=== PATIENT | male | born 2000 | race Caucasian/White ===

== ENCOUNTER 2022-12-22 23:50 | Emergency (ER) | payer SELFPAY ==
[2022-12-22 23:51] VITALS: BP 141/83; PULSE 84; RESP 16; TEMP 36.4; O2SAT 98; BMI 18.8
[2022-12-23 00:02] VITALS: BP 102/67; PULSE 78; RESP 18; O2SAT 97
--- NOTE | 2022-12-23 00:15 | CTR_ITS ---
PROCEDURE INFORMATION: Exam: CT Abdomen And Pelvis With Contrast Exam date and time: 12/23/2022 12:26 AM Age: 22 years old Clinical indication: Abdominal pain; Generalized; Patient HX: C/O diffuse abd pain. ; Additional info: Central abd pain, R/O infection, renal calculi, bowel obstru TECHNIQUE: Imaging protocol: Computed tomography of the abdomen and pelvis with contrast. Radiation optimization: All CT scans at this facility use at least one of these dose optimization techniques: automated exposure control; mA and/or kV adjustment per patient size (includes targeted exams where dose is matched to clinical indication); or iterative reconstruction. Contrast material: OMNI 350; Contrast volume: 75 ml; Contrast route: INTRAVENOUS (IV); REPORTING DATA: Count of CT and Cardiac NM exams in prior 12 months: This patient has received 0 known CTs and 0 known cardiac nuclear medicine studies in the 12 months prior to the current study. COMPARISON: No relevant prior studies available. RADIATION DOSE METRICS: Total DLP (mGy-cm): 332.24 FINDINGS: Liver: Normal. No mass. Gallbladder and bile ducts: Normal. No calcified stones. No ductal dilation. Pancreas: Normal. No ductal dilation. Spleen: Normal. No splenomegaly. Adrenal glands: Normal. No mass. Kidneys and ureters: The kidney is in the early excretory phase with a striated appearance. This is not the typical appearance of pyelonephritis and there is no perirenal fat stranding. No hydronephrosis. No renal calculus. Stomach and bowel: No bowel obstruction or inflammatory process associated with the bowel. Appendix: The appendix images normally. Intraperitoneal space: No free air or significant free fluid in the abdomen or pelvis. Vasculature: Unremarkable. No abdominal aortic aneurysm. Lymph nodes: Unremarkable. No enlarged lymph nodes. Urinary bladder: Unremarkable as visualized. Reproductive: Unremarkable as visualized. Bones/joints: Unremarkable. No acute fracture. Soft tissues: Unremarkable. CT/CT abdomen pelvis w con* [id number] IMPRESSION: 1. No bowel obstruction or inflammatory process associated with the bowel. 2. No free air or significant free fluid in the abdomen or pelvis. 3. The appendix images normally. 4. The kidney is in the early excretory phase with a striated appearance. This is not the typical appearance of pyelonephritis and there is no perirenal fat stranding. No hydronephrosis. No renal calculus.
--- NOTE | 2022-12-23 00:16 | W.ED.BACK ---
Documented by User: SABRINA Holland 12/23/22 00:57 HPI - Back Pain/Injury General: Chief Complaint: Back Pain/Injury Stated Complaint: Back Pain Time Seen by Provider: 12/23/22 00:04 History of Present Illness: 22-year-old male patient comes in today with nausea and vomiting starting this morning and persisting throughout the day with mid back pain. Patient appears unwell. Patient appears in moderate pain. Patient is disabled due to autism spectrum disorder. No routine medications are noted. Patient does not drink alcohol occasionally. Patient is a daily marijuana smoker. Associated symptoms: Reports nausea and vomiting Review of Systems General: Reports: 10 or more systems reviewed and unremarkable except in HPI and below Resp: Denies: dyspnea GI: Reports: nausea and vomiting; Denies: diarrhea or constipation Musc: Reports: back pain Skin/Breast: Denies: rash Physical Exam Const: COMMON NORMALS: alert HENMT: COMMON NORMALS: normocephalic HEAD & SCALP: normocephalic MOUTH: Normal oral and palatal mucosa present Neck/C-Spine: COMMON NORMALS: full ROM Resp: COMMON NORMALS: normal respiratory effort and clear to auscultation bilaterally AUSCULTATION: clear to auscultation bilaterally Cardio: COMMON NORMALS: regular rate and regular rhythm RATE: regular rate RHYTHM: regular rhythm GI: COMMON NORMALS: Soft to palpation AUSCULTATION: Yes normoactive bowel sounds PALPATION: Yes Soft to palpation and Yes Tenderness to palpation present (GI) (Epigastric) : COMMON NORMALS: Yes no CVA tenderness BLADDER/KIDNEY EXAM: Yes no CVA tenderness Back/Pelvis: COMMON NORMALS: no CVA tenderness and thoracic and lumbar spine normal to inspection Extremity: COMMON NORMALS: normal to inspection and no pedal edema Neuro: SENSORIUM/ORIENTATION: Yes alert Skin: COMMON NORMALS: turgor normal GENERAL SKIN EXAM: turgor normal Course Vital Signs: Vital signs: Vital Signs Temperature 97.6 F 12/22/22 23:51 Pulse Rate 78 12/23/22 00:02 Respiratory Rate 16 12/23/22 00:44 Blood Pressure 102/67 12/23/22 00:02 Pulse Oximetry 99 12/23/22 00:44 Oxygen Delivery Me thod Room Air 12/23/22 00:02 MDM - Back Pain/Injury Medical Decision Making 22-year-old male patient brought in today by mother for concerns of persistent vomiting and mid back pain. On exam abdomen soft with some mild epigastric tenderness. Palpation of the thoracic and lumbar spine elicited no pain. Palpation of the paraspinous muscles elicit no pain. Patient does report pain with movement. Lungs are clear to auscultation. Bowel sounds are normal. Vital signs are normal except for some elevation and blood pressure. Differential diagnosis includes but not limited to hyperemesis cannabinoid syndrome, pancreatitis, gallbladder disease, renal calculi, bowel obstruction, appendicitis, dehydration. Labs 12/23/22 00:20 12/23/22 00:20 Radiology Impressions Abdomen/Pelvis CT 12/23/22:15 IMPRESSION: 1. No bowel obstruction or inflammatory process associated with the bowel. 2. No free air or significant free fluid in the abdomen or pelvis. 3. The appendix images normally. 4. The kidney is in the early excretory phase with a striated appearance. This is not the typical appearance of pyelonephritis and there is no perirenal fat stranding. No hydronephrosis. No renal calculus. Laboratory Results WBC 24.74 10^3/uL (3.29-11.43) H 12/23/22 00:20 RBC 4.99 10^6/uL (3.85-5.65) 12/23/22 00:20 Hgb 15.50 g/dL (11.27-16.99) 12/23/22 00:20 Hct 44.1 % (37-53) 12/23/22 00:20 MCV 88.4 fl (82-101) 12/23/22 00:20 MCH 31.1 pg (27-33) 12/23/22 00:20 MCHC 35.1 g/dL (30-55) 12/23/22 00:20 RDW 12.4 % (12.1-15.1) 12/23/22 00:20 Plt Count 293 10^3/cmm (157-399) 12/23/22 00:20 MPV 9.4 fL (7.4-10.4) 12/23/22 00:20 Neut % (Auto) 90.7 % 12/23/22 00:20 Lymph % (Auto) 2.8 % 12/23/22 00:20 Cataño % (Auto) 5.8 % 12/23/22 00:20 Eos % (Auto) 0.0 % 12/23/22 00:20 Baso % (Auto) 0.1 % 12/23/22 00:20 Neut # (Auto) 22.42 10^3/uL (1.8-7.7) H 12/23/22 00:20 Lymph # (Auto) 0.7 10^3/uL (0.8-4.8) L 12/23/22 00:20 Cataño # (Auto) 1.4 10^3/uL (0.2-0.9) H 12/23/22 00:20 Eos # (Auto) 0.0 10^3/uL (0.0-0.8) 12/23/22 00:20 Baso # (Auto) 0.0 10^3/uL (0.0-0.1) 12/23/22 00:20 Nucleated RBC % (auto) 0 % 12/23/22 00:20 Nucleated RBCs # 0.0 /100WBC 12/23/22 00:20 Sodium 137 mmol/L (136-145) 12/23/22 00:20 Potassium 4.1 mmol/L (3.5-5.1) 12/23/22 00:20 Chloride 96 mmol/L (98-107) L 12/23/22 00:20 Carbon Dioxide 24 mmol/L (22-29) 12/23/22 00:20 Anion Gap 21.1 (5-19) H 12/23/22 00:20 BUN 26 mg/dL (6-20) H 12/23/22 00:20 Creatinine 1.3 mg/dL (0.7-1.2) H 12/23/22 00:20 GFR Calculation 69.7 mL/min (90-130) L 12/23/22 00:20 Glucose 132 mg/dL (65-115) H 12/23/22 00:20 Calculated Osmolality 291 mOsm/kg (285-295) 12/23/22 00:20 Calcium 10.1 mg/dL (8.5-10.5) 12/23/22 00:20 Total Bilirubin 0.5 mg/dL (0.15-1.2) 12/23/22 00:20 AST 52 U/L (0-40) H 12/23/22 00:20 ALT 39 U/L (0-41) 12/23/22 00:20 Alkaline Phosphatase 67 U/L (40-130) 12/23/22 00:20 Total Protein 9.0 g/dL (6.6-8.7) H 12/23/22 00:20 Albumin 5.7 g/dL (3.5-5.2) H 12/23/22 00:20 Globulin 3.3 g/dL (1.3-4.6) 12/23/22 00:20 Lipase 22 U/L (13-60) 12/23/22 00:20 XR interpretation done by ED provider, pending radiology final review Discharge Plan Discharge Patient Disposition: Home Clinical Impression: Vomiting Condition: Stable Prescriptions: New ondansetron 4 mg tablet,disintegrating 4 mg PO Q6H PRN (Reason: nausea and vomiting) Qty: 14 0RF Discharge Orders: Discharge ED (Routine); Ordered 12/23/22 Ordered By: Bisi Palmer Discharge Diet: Advance as tolerated Discharge Activity: Resume usual activity Patient Instructions: Acute Nausea and Vomiting (ED) Coding Level of Care Code ED Sharepoint Manager for Chg Fwd Documented by User: Bisi Palmer MD 12/23/22 01:53 HPI - Back Pain/Injury General: Chief Complaint: Back Pain/Injury Stated Complaint: Back Pain Time Seen by Provider: 12/23/22 00:04 Course Vital Signs: Vital signs: Vital Signs Temperature 97.6 F 12/22/22 23:51 Pulse Rate 78 12/23/22 00:02 Respiratory Rate 16 12/23/22 00:44 Blood Pressure 102/67 12/23/22 00:02 Pulse Oximetry 99 12/23/22 00:44 Oxygen Delivery Me thod Room Air 12/23/22 00:02 MDM - Back Pain/Injury Medical Decision Making 22-year-old male patient brought in today by mother for concerns of persistent vomiting and mid back pain. On exam abdomen soft with some mild epigastric tenderness. Palpation of the thoracic and lumbar spine elicited no pain. Palpation of the paraspinous muscles elicit no pain. Patient does report pain with movement. Lungs are clear to auscultation. Bowel sounds are normal. Vital signs are normal except for some elevation and blood pressure. Differential diagnosis includes but not limited to hyperemesis cannabinoid syndrome, pancreatitis, gallbladder disease, renal calculi, bowel obstruction, appendicitis, dehydration. Patient presents here with vomiting likely cannabis induced vomiting does have elevated white count is likely reactive in nature he feels improved here after IV fluids and nausea medicine CT scan showed no acute findings he is stable for discharge we will prescribe him Zofran instructed him to quit smoking marijuana he is to follow-up with his PCP and return if worsening Medical Records I reviewed the patient's medical records. Labs I reviewed the patient's lab results. 12/23/22 00:20 12/23/22 00:20 Radiology Impressions Abdomen/Pelvis CT 12/23/22 00:15 IMPRESSION: 1. No bowel obstruction or inflammatory process associated with the bowel. 2. No free air or significant free fluid in the abdomen or pelvis. 3. The appendix images normally. 4. The kidney is in the early excretory phase with a striated appearance. This is not the typical appearance of pyelonephritis and there is no perirenal fat stranding. No hydronephrosis. No renal calculus. Laboratory Results WBC 24.74 10^3/uL (3.29-11.43) H 12/23/22 00:20 RBC 4.99 10^6/uL (3.85-5.65) 12/23/22 00:20 Hgb 15.50 g/dL (11.27-16.99) 12/23/22 00:20 Hct 44.1 % (37-53) 12/23/22 00:20 MCV 88.4 fl (82-101) 12/23/22 00:20 MCH 31.1 pg (27-33) 12/23/22 00:20 MCHC 35.1 g/dL (30-55) 12/23/22 00:20 RDW 12.4 % (12.1-15.1) 12/23/22 00:20 Plt Count 293 10^3/cmm (157-399) 12/23/22 00:20 MPV 9.4 fL (7.4-10.4) 12/23/22 00:20 Neut % (Auto) 90.7 % 12/23/22 00:20 Lymph % (Auto) 2.8 % 12/23/22 00:20 Cataño % (Auto) 5.8 % 12/23/22 00:20 Eos % (Auto) 0.0 % 12/23/22 00:20 Baso % (Auto) 0.1 % 12/23/22 00:20 Neut # (Auto) 22.42 10^3/uL (1.8-7.7) H 12/23/22 00:20 Lymph # (Auto) 0.7 10^3/uL (0.8-4.8) L 12/23/22 00:20 Cataño # (Auto) 1.4 10^3/uL (0.2-0.9) H 12/23/22 00:20 Eos # (Auto) 0.0 10^3/uL (0.0-0.8) 12/23/22 00:20 Baso # (Auto) 0.0 10^3/uL (0.0-0.1) 12/23/22 00:20 Nucleated RBC % (auto) 0 % 12/23/22 00:20 Nucleated RBCs # 0.0 /100WBC 12/23/22 00:20 Sodium 137 mmol/L (136-145) 12/23/22 00:20 Potassium 4.1 mmol/L (3.5-5.1) 12/23/22 00:20 Chloride 96 mmol/L (98-107) L 12/23/22 00:20 Carbon Dioxide 24 mmol/L (22-29) 12/23/22 00:20 Anion Gap 21.1 (5-19) H 12/23/22 00:20 BUN 26 mg/dL (6-20) H 12/23/22 00:20 Creatinine 1.3 mg/dL (0.7-1.2) H 12/23/22 00:20 GFR Calculation 69.7 mL/min (90-130) L 12/23/22 00:20 Glucose 132 mg/dL (65-115) H 12/23/22 00:20 Calculated Osmolality 291 mOsm/kg (285-295) 12/23/22 00:20 Calcium 10.1 mg/dL (8.5-10.5) 12/23/22 00:20 Total Bilirubin 0.5 mg/dL (0.15-1.2) 12/23/22 00:20 AST 52 U/L (0-40) H 12/23/22 00:20 ALT 39 U/L (0-41) 12/23/22 00:20 Alkaline Phosphatase 67 U/L (40-130) 12/23/22 00:20 Total Protein 9.0 g/dL (6.6-8.7) H 12/23/22 00:20 Albumin 5.7 g/dL (3.5-5.2) H 12/23/22 00:20 Globulin 3.3 g/dL (1.3-4.6) 12/23/22 00:20 Lipase 22 U/L (13-60) 12/23/22 00:20 Discharge Plan Discharge Patient Disposition: Home Clinical Impression: Vomiting Condition: Stable Prescriptions: New ondansetron 4 mg tablet,disintegrating 4 mg PO Q6H PRN (Reason: nausea and vomiting) Qty: 14 0RF Discharge Orders: Discharge ED (Routine); Ordered 12/23/22 Ordered By: Bisi Palmer Discharge Diet: Advance as tolerated Discharge Activity: Resume usual activity Patient Instructions: Acute Nausea and Vomiting (ED) Coding Level of Care Code ED Sharepoint Manager for Gerardo Bray
[2022-12-23 00:26] LABS: Basophils % 0.1 %; Hematocrit 44.1 % (37-53); Lymphocytes # 0.7 10^3/uL (0.8-4.8); Lymphocytes % 2.8 %; Mean Corpuscular HGB Conc 35.1 g/dL (30-55); Mean Corpuscular Hemoglobin 31.1 pg (27-33); Mean Corpuscular Volume 88.4 fl (82-101); Mean Platelet Volume 9.4 fL (7.4-10.4); Monocytes # 1.4 10^3/uL (0.2-0.9); Monocytes % 5.8 %; Neutrophils # 22.42 10^3/uL (1.8-7.7); Neutrophils % 90.7 %; Nucleated Red Blood Cells % 0 %; Platelet Count 293 10^3/cmm (157-399); Red Blood Count 4.99 10^6/uL (3.85-5.65); Red Cell Distribution Width 12.4 % (12.1-15.1); White Blood Count 24.74 10^3/uL (3.29-11.43)
[2022-12-23] MEDS: iohexol 350 mg/mL 500 mL Btl (per mL) IV (00:29)
[2022-12-23 00:43] LABS: Alanine Aminotransferase 39 U/L (0-41); Albumin Level 5.7 g/dL (3.5-5.2); Alkaline Phosphatase 67 U/L (40-130); Anion Gap 21.1 (5-19); Aspartate Amino Transferase 52 U/L (0-40); Blood Urea Nitrogen 26 mg/dL (6-20); Calcium 10.1 mg/dL (8.5-10.5); Carbon Dioxide 24 mmol/L (22-29); Chloride 96 mmol/L (98-107); Globulin 3.3 g/dL (1.3-4.6); Glomerular Filtration Rate 69.7 mL/min (90-130); Glucose 132 mg/dL (65-115); Lipase 22 U/L (13-60); Osmolality Calculated 291 mOsm/kg (285-295); Potassium 4.1 mmol/L (3.5-5.1); Sodium 137 mmol/L (136-145); Total Bilirubin 0.5 mg/dL (0.15-1.2)
[2022-12-23] MEDS: metoclopramide 5 mg/mL SDV 2 mL 10 MG IVP (00:43)
[2022-12-23 00:44] VITALS: RESP 16; O2SAT 99
[2022-12-23] MEDS: fentaNYL 50 mcg/mL INJ 2mL IVP (00:44)
[2022-12-23] MEDS: sodium chloride 0.9% 1,000 ML 999 ML IV (00:45)
[2022-12-23] MEDS: lactated ringers 1,000 ML 999 ML IV (01:01)
[2022-12-23 02:04] VITALS: BP 108/58; PULSE 91; RESP 18; O2SAT 98
[2022-12-23 02:36] VITALS: BP 121/67; PULSE 78; RESP 18; O2SAT 97
== END 2022-12-23 02:38 | disposition home or self-care (01) ==
PROVIDERS: Nurse Practitioner Family; Emergency Provider Emergency Medicine
DX: R11.11 Vomiting without nausea (principal)
CPT/HCPCS: 74177; 80053; 83690; 85025; 96361; 96374; 96375; 99285; J2765; J3010; J7030; J7120; Q9967

== ENCOUNTER 2024-03-23 17:30 | Emergency (ER) | payer SELFPAY ==
[2024-03-23] VITALS (10 sets, daily range): BP systolic 99–135; BP diastolic 68–88; PULSE 81–109; RESP 13–18; TEMP 35.8; O2SAT 92–100; BMI 21.9
[2024-03-23] MEDS: LORazepam 2 mg/mL INJ 1 mL IM (17:42)
[2024-03-23] MEDS: levETIRAcetam 1,000 MG/100 ML PREMIX 400 MG IV (17:44)
[2024-03-23 17:46] LABS: Basophils % 0.3 %; Eosinophils % 0.2 %; Hematocrit 52.3 % (37-53); Lymphocytes # 2.9 10^3/uL (0.8-4.8); Mean Corpuscular HGB Conc 32.3 g/dL (30-55); Mean Corpuscular Volume 92.9 fl (82-101); Mean Platelet Volume 9.7 fL (7.4-10.4); Monocytes # 0.9 10^3/uL (0.2-0.9); Monocytes % 6.1 %; Neutrophils # 10.58 10^3/uL (1.8-7.7); Nucleated Red Blood Cells % 0 %; Platelet Count 373 10^3/cmm (157-399); Red Blood Count 5.63 10^6/uL (3.85-5.65); Red Cell Distribution Width 12.4 % (12.1-15.1); White Blood Count 14.49 10^3/uL (3.29-11.43)
[2024-03-23 17:54] LABS: Glucose Point of Care 102 mg/dL (70-110)
--- NOTE | 2024-03-23 17:55 | ED_ITS ---
HPI - Seizure 2 General: Chief Complaint: Seizure Stated Complaint: seizure @ 4:30 pm today Time Seen by Provider: 03/23/24 17:37 Source: family Mode of arrival: ambulatory History of Present Illness: HPI Narrative: 24-year-old male with history of seizure s had a seizure today at 430 upon his arrival here he still having another seizure patient brought back to room 12 1 had walked in the room he had resolved his seizure at this time. Patient's postictal no history available from him at this time. Parents in the room currently he states he did hit his head earlier today they state he is not on seizure meds currently because he has not had any seizures in years. Related Data Previous Rx's Medication Instructions Recorded ondansetron 4 mg disintegrating 4 mg PO Q6H PRN nausea and 12/23/22 tablet vomiting #14 tabs levetiracetam 100 mg/mL oral 500 mg (5 mL) PO BID 60 days #600 03/23/24 solution (Keppra) mL Allergies Allergy/AdvReac Type Severity Reaction Status Date / Time No Known Allergies Allergy Verified 12/23/22 01:05 Review of Systems 2 General: Reports: ROS unobtainable due to mental status Physical Exam 2 Const: COMMON NORMALS: negative for patient oriented x3 HENMT: COMMON NORMALS: normocephalic and atraumatic HEAD & SCALP: n ormocephalic and atraumatic Eye: COMMON NORMALS: Equal, round and reactive pupils present and EOMs intact bilaterally PUPIL: Yes Equal, round and reactive pupils present Neck/C-Spine: COMMON NORMALS: full ROM and supple Chest: COMMONS NORMALS: normal inspection of the chest Resp: COMMON NORMALS: normal respiratory effort, No retractions, No use of accessory muscles and clear to auscultation bilaterally AUSCULTATION: clear to auscultation bilaterally Cardio: COMMON NORMALS: regular rate, regular rhythm and No murmurs present (Cardio) RATE: regular rate RHYTHM: regular rhythm GI: COMMON NORMALS: Normal to inspection, nondistended, normoactive bowel sounds present, Soft to palpation, non-tender and no masses PALPATION: Yes Soft to palpation Extremity: COMMON NORMALS: normal to inspection and full ROM Neuro: COMMON NORMALS: negative for patient oriented x3 Psych: COMMON NORMALS: negative for mental status grossly normal Skin: COMMON NORMALS: no rashes or lesions noted and no wounds GENERAL SKIN EXAM: no rashes or lesions noted Course 2 Vital Signs: Vital signs: Vital Signs Temperature 96.5 F L 03/23/24 17:47 Pulse Rate 82 03/23/24 20:41 Respiratory Rate 18 03/23/24 20:41 Blood Pressure 120/88 03/23/24 20:41 Pulse Oximetry 94 03/23/24 20:41 Oxygen Delivery Me thod Room Air 03/23/24 17:47 MDM - Seizure MDM Narrative Medical decision making narrative: Patient presents after a seizure he is at his baseline currently no signs of meningitis head CT is normal we will start him on Keppra we will get him follow- up with neurology he is return if worsening he understands agrees to plan. Lab Data 03/23/24 17:41 03/23/24 17:41 Labs: Radiology Impressions Head CT 03/23/24 18:28 IMPRESSION: No acute intracranial abnormalities. Laboratory Results WBC 14.49 10^3/uL (3.29-11.43) H 03/23/24 17:41 RBC 5.63 10^6/uL (3.85-5.65) 03/23/24 17:41 Hgb 16.90 g/dL (11.27-16.99) 03/23/24 17:41 Hct 52.3 % (37-53) 03/23/24 17:41 MCV 92.9 fl (82-101) 03/23/24 17:41 MCH 30.0 pg (27-33) 03/23/24 17:41 MCHC 32.3 g/dL (30-55) 03/23/24 17:41 RDW 12.4 % (12.1-15.1) 03/23/24 17:41 Plt Count 373 10^3/cmm (157-399) 03/23/24 17:41 MPV 9.7 fL (7.4-10.4) 03/23/24 17:41 Neut % (Auto) 73.0 % 03/23/24 17:41 Lymph % (Auto) 20.0 % 03/23/24 17:41 Robertson % (Auto) 6.1 % 03/23/24 17:41 Eos % (Auto) 0.2 % 03/23/24 17:41 Baso % (Auto) 0.3 % 03/23/24 17:41 Neut # (Auto) 10.58 10^3/uL (1.8-7.7) H 03/23/24 17:41 Lymph # (Auto) 2.9 10^3/uL (0.8-4.8) 03/23/24 17:41 Robertson # (Auto) 0.9 10^3/uL (0.2-0.9) 03/23/24 17:41 Eos # (Auto) 0.0 10^3/uL (0.0-0.8) 03/23/24 17:41 Baso # (Auto) 0.0 10^3/uL (0.0-0.1) 03/23/24 17:41 Nucleated RBC % (auto) 0 % 03/23/24 17:41 Nucleated RBCs # 0.0 /100WBC 03/23/24 17:41 Sodium 141 mmol/L (136-145) 03/23/24 17:41 Potassium 4.5 mmol/L (3.5-5.1) 03/23/24 17:41 Chloride 97 mmol/L (98-107) L 03/23/24 17:41 Carbon Dioxide 14 mmol/L (22-29) L 03/23/24 17:41 Anion Gap 34.5 (5-19) H 03/23/24 17:41 BUN 17 mg/dL (6-20) 03/23/24 17:41 Creatinine 0.9 mg/dL (0.7-1.2) 03/23/24 17:41 GFR Calculation 104.6 mL/min (90-130) 03/23/24 17:41 Glucose 117 mg/dL (65-115) H 03/23/24 17:41 POC Glucose 102 mg/dL (70-110) 03/23/24 17:41 Calculated Osmolality 295 mOsm/kg (285-295) 03/23/24 17:41 Calcium 11.0 mg/dL (8.5-10.5) H 03/23/24 17:41 Total Bilirubin 0.3 mg/dL (0.15-1.2) 03/23/24 17:41 AST 44 U/L (0-40) H 03/23/24 17:41 ALT 36 U/L (0-41) 03/23/24 17:41 Alkaline Phosphatase 79 U/L (40-130) 03/23/24 17:41 Total Protein 9.6 g/dL (6.6-8.7) H 03/23/24 17:41 Albumin 5.7 g/dL (3.5-5.2) H 03/23/24 17:41 Globulin 3.9 g/dL (1.3-4.6) 03/23/24 17:41 All radiology interpretation(s) finalized by discharge Discharge Plan Discharge Patient Disposition: Home Clinical Impression: Generalized seizure Condition: Stable Prescriptions: New levetiracetam [Keppra] 100 mg/mL solution 500 mg PO BID 60 Days Qty: 600 0RF No Action ondansetron 4 mg tablet,disintegrating 4 mg PO Q6H PRN (Reason: nausea and vomiting) Qty: 14 0RF Discharge Orders: Discharge ED (Routine); Ordered 03/23/24 Ordered By: Bisi Palmer Referrals: Chris Rivero MD [Physician] - 4-7 days Discharge Diet: Advance as tolerated Discharge Activity: Resume usual activity Patient Instructions: Seizures Coding Level of Care Code ED Process Operator for Gerardo Bray
[2024-03-23 18:05] LABS: Alanine Aminotransferase 36 U/L (0-41); Albumin Level 5.7 g/dL (3.5-5.2); Alkaline Phosphatase 79 U/L (40-130); Anion Gap 34.5 (5-19); Aspartate Amino Transferase 44 U/L (0-40); Blood Urea Nitrogen 17 mg/dL (6-20); Carbon Dioxide 14 mmol/L (22-29); Chloride 97 mmol/L (98-107); Creatinine Clr Calc Pharmacy 117.4716; Globulin 3.9 g/dL (1.3-4.6); Glomerular Filtration Rate 104.6 mL/min (90-130); Glucose 117 mg/dL (65-115); Osmolality Calculated 295 mOsm/kg (285-295); Potassium 4.5 mmol/L (3.5-5.1); Sodium 141 mmol/L (136-145); Total Bilirubin 0.3 mg/dL (0.15-1.2); Total Protein 9.6 g/dL (6.6-8.7)
--- NOTE | 2024-03-23 18:28 | CTR_ITS ---
PROCEDURE INFORMATION: Exam: CT Head Without Contrast Exam date and time: 03/23/2024 6:37 PM Age: 24 years old Clinical indication: Condition or disease; Convulsions or seizures; Patient HX: Mulitple seizures today. History of pediatric seizure disorder. TECHNIQUE: Imaging protocol: Computed tomography of the head without contrast. Radiation optimization: All CT scans at this facility use at least one of these dose optimization techniques: automated exposure control; mA and/or kV adjustment per patient size (includes targeted exams where dose is matched to clinical indication); or iterative reconstruction. COMPARISON: No relevant prior studies available. RADIATION DOSE METRICS: Total DLP (mGy-cm): 1091.79 FINDINGS: Brain: Normal. No hemorrhage. Unremarkable white matter. No mass effect. Cerebral ventricles: No ventriculomegaly. Paranasal sinuses: Mild paranasal mucosal sinus thickening. Mastoid air cells: Visualized mastoid air cells are well aerated. Bones: Unremarkable. No acute fracture. Soft tissues: Unremarkable. CT/CT head wo con* [id number] IMPRESSION: No acute intracranial abnormalities.
--- NOTE | 2024-03-23 20:29 | PC.NURSE ---
Patient ambulated with assistance from bed to room door and back. Dr. Palmer notified.
--- NOTE | 2024-03-24 09:32 | DCPLANNER ---
messaged neuro for er f/u
== END 2024-03-23 20:45 | disposition home or self-care (01) ==
PROVIDERS: Emergency Provider Emergency Medicine
DX: G40.89 Other seizures (principal)
CPT/HCPCS: 36415; 36416; 70450; 80053; 82962; 85025; 96372; 96374; 99285; J1953; J2060

== ENCOUNTER 2024-05-25 17:31 | Emergency (ER) | payer SELFPAY ==
[2024-05-25 17:36] VITALS: BP 115/77; PULSE 79; RESP 16; O2SAT 98; BMI 19.2
[2024-05-25] MEDS: levETIRAcetam 2,000 MG/200 ML PREMIX 400 MG IV (17:45)
[2024-05-25 17:51] LABS: ABG PCO2 42.7 mmHg (35-45); Arterial Blood Gas Hematocrit 49.9 % (42-52); Base Excess ABG -22.5 mmol/L (-2.0-2.0); Blood Gas Allen Test Pos; Blood Gas Operator Identificat WALCI; Blood Gas Sample Site Radial, right; Blood Gas Sample Type Arterial; Carboxyhemoglobin 0.4 %THgb (0.4-20.1); HCO3 ABG 9.5 mmol/L (22-26); Ionized Calcium Level - ABG 1.3 mmol/L (1.1-1.4); Methemoglobin 1.2 % (0.4-1.5); Oxygen Device NC; Oxygen Saturation ABG 98.6; Potassium Level - ABG 3.7 mmol/L (3.5-5.0); Total Hemoglobin 16.3 g/dL (14-18)
[2024-05-25 17:52] LABS: ABG PH Result 6.95 (7.35-7.45)
[2024-05-25 17:57] VITALS: PULSE 64; O2SAT 98
[2024-05-25 18:09] LABS: Basophils # 0.1 10^3/uL (0.0-0.1); Basophils % 0.7 %; Eosinophils # 0.3 10^3/uL (0.0-0.8); Eosinophils % 2.2 %; Hematocrit 47.2 % (37-53); Lymphocytes % 26.5 %; Mean Corpuscular HGB Conc 31.6 g/dL (30-55); Mean Corpuscular Hemoglobin 29.9 pg (27-33); Mean Corpuscular Volume 94.8 fl (82-101); Mean Platelet Volume 9.6 fL (7.4-10.4); Monocytes # 0.8 10^3/uL (0.2-0.9); Neutrophils # 9.71 10^3/uL (1.8-7.7); Neutrophils % 64.5 %; Nucleated Red Blood Cells % 0 %; Platelet Count 363 10^3/cmm (157-399); Red Blood Count 4.98 10^6/uL (3.85-5.65); Red Cell Distribution Width 12.3 % (12.1-15.1); White Blood Count 15.07 10^3/uL (3.29-11.43)
[2024-05-25 18:28] LABS: Alanine Aminotransferase 17 U/L (0-41); Alkaline Phosphatase 74 U/L (40-130); Anion Gap 28.7 (5-19); Aspartate Amino Transferase 24 U/L (0-40); Blood Urea Nitrogen 11 mg/dL (6-20); Calcium 9.1 mg/dL (8.5-10.5); Carbon Dioxide 11 mmol/L (22-29); Chloride 97 mmol/L (98-107); Creatine Phosphokinase 139 U/L (39-308); Creatinine Clr Calc Pharmacy 119.1789; Globulin 2.9 g/dL (1.3-4.6); Glomerular Filtration Rate 104.6 mL/min (90-130); Glucose 214 mg/dL (65-115); Osmolality Calculated 282 mOsm/kg (285-295); Potassium 3.7 mmol/L (3.5-5.1); Sodium 133 mmol/L (136-145); Total Bilirubin 0.2 mg/dL (0.15-1.2); Total Protein 7.9 g/dL (6.6-8.7)
[2024-05-25 18:32] LABS: Alcohol Level < 10 mg/dL (0-10)
[2024-05-25 18:34] LABS: Lactic Sepsis W/Reflex 13.2 mmol/L (0.5-2.2)
[2024-05-25] MEDS: sodium chloride 0.9% 1,000 ML 999 ML IV (18:46)
--- NOTE | 2024-05-25 18:50 | W.ED.SEIZURE ---
HPI - Seizure General: Chief Complaint: Seizure Stated Complaint: seizures Time Seen by Provider: 05/25/24 17:34 History of Present Illness: HPI Narrative: 24-year-old man with a history of seizure disorder who presents emergency room after having extended seizures. EMS reports that he perhaps did not take his medications last night. He received 5 of Versed in the ambulance. He is now postictal/somnolent from medications. He does appear to be maintaining his airway. Related Data Previous Rx's ?Medication ?Instructions ?Recorded ondansetron 4 mg disintegrating 4 mg PO Q6H PRN nausea and 12/23/22 tablet vomiting #14 tabs levetiracetam 100 mg/mL oral 500 mg (5 mL) PO BID 60 days #600 05/20/24 solution (Keppra) mL ondansetron HCl 4 mg/5 mL oral 4 mg (5 mL) PO Q6H PRN nausea and 05/20/24 solution vomiting #50 mL Allergies Allergy/AdvReac Type Severity Reaction Status Date / Time No Known Allergies Allergy Verified 05/25/24 17:57 Review of Systems General: Reports: ROS unobtainable due to medical condition [facility] ED PFSH: Social History Smoking and tobacco/nicotine status: current every day tobacco/nicotine user (THC) Physical Exam Narrative: EXAM NARRATIVE: General: Somnolent but arousable Skin: Warm, dry Head: Normocephalic, atraumatic. Neck: Supple, trachea midline. Eye: Extraocular movements are intact. Ears, nose, mouth and throat: Dry oral mucosa. Cardiovascular: Regular rate and rhythm, Normal peripheral perfusion. Respiratory: Lungs are clear to auscultation, respirations are non-labored, breath sounds are equal, Symmetrical chest wall expansion. Gastrointestinal: Soft, Nontender, Non distended, Normal bowel sounds. Musculoskeletal: no deformity. Neurological: Somnolent but oriented when awakened, No obvious focal neurological deficit observed. Psychiatric: unable to assess. Course Vital Signs: Vital signs: Vital Signs Temperature 97.5 F L 05/25/24 20:18 Pulse Rate 88 05/25/24 18:57 Respiratory Rate 23 H 05/25/24 18:57 Blood Pressure 93/68 05/25/24 18:57 Pulse Oximetry 98 05/25/24 18:57 Oxygen Delivery Me thod Nasal Cannula 05/25/24 17:36 Oxygen Flow Rate 3 05/25/24 17:36 MDM - Seizure MDM Narrative Medical decision making narrative: Medical decision making: Differential diagnosis for this patient with a complaint of seizure like activity would include but not be limited to, and based on the above HPI, review of systems and physical exam: seizure, DT's, alcohol withdrawal, brain malignancy, pseudo-seizure, syncope. Orders placed to evaluate differential diagnosis based on the above differential, HPI and physical exam Lab Review: Laboratory results were reviewed and interpreted by myself the emergency room physician Patient did have quite the significant lactic acidosis with a pH of 7 initially with a lactate of 13. This is improving and that around 45 minutes later it was already up to 7.2. I reviewed the patient's medical record. Reexamination: Patient's temperature has returned back to normal. His mentation is improved. He still slightly somnolent but family says usually takes about a day for him to improve completely. He now was able to tell us that he did forget to take his medications. Dad also says he had been only taking it once a day and they are going to start administering his medications again. Assessment and plan: Seizure ?2 g IV Keppra in the emergency room. - Discharged home - Discussed plan with patient. Answered any questions. - Evaluation and treatment of this problem were appropriate in the emergency setting. Lab Data 05/25/24 18:02 05/25/24 18:02 Labs: Laboratory Results WBC 15.07 10^3/uL (3.29-11.43) H 05/25/24 18:02 RBC 4.98 10^6/uL (3.85-5.65) 05/25/24 18:02 Hgb 14.90 g/dL (11.27-16.99) 05/25/24 18:02 Hct 47.2 % (37-53) 05/25/24 18:02 MCV 94.8 fl (82-101) 05/25/24 18:02 MCH 29.9 pg (27-33) 05/25/24 18:02 MCHC 31.6 g/dL (30-55) 05/25/24 18:02 RDW 12.3 % (12.1-15.1) 05/25/24 18:02 Plt Count 363 10^3/cmm (157-399) 05/25/24 18:02 MPV 9.6 fL (7.4-10.4) 05/25/24 18:02 Neut % (Auto) 64.5 % 05/25/24 18:02 Lymph % (Auto) 26.5 % 05/25/24 18:02 Bea[place]gard % (Auto) 5.0 % 05/25/24 18:02 Eos % (Auto) 2.2 % 05/25/24 18:02 Baso % (Auto) 0.7 % 05/25/24 18:02 Neut # (Auto) 9.71 10^3/uL (1.8-7.7) H 05/25/24 18:02 Lymph # (Auto) 4.0 10^3/uL (0.8-4.8) 05/25/24 18:02 Beauregard # (Auto) 0.8 10^3/uL (0.2-0.9) 05/25/24 18:02 Eos # (Auto) 0.3 10^3/uL (0.0-0.8) 05/25/24 18:02 Baso # (Auto) 0.1 10^3/uL (0.0-0.1) 05/25/24 18:02 Nucleated RBC % (auto) 0 % 05/25/24 18:02 Nucleated RBCs # 0.0 /100WBC 05/25/24 18:02 Specimen Type Arterial 05/25/24 18:42 Sample Site Radial, left 05/25/24 18:42 ABG pH 7.22 (7.35-7.45) L 05/25/24 18:42 ABG pCO2 48.6 mmHg (35-45) H 05/25/24 18:42 ABG pO2 176.0 mmHg (80.0-100.0) H 05/25/24 18:42 ABG PO2/FiO2 Ratio 628 05/25/24 18:42 ABG HCO3 19.7 mmol/L (22-26) L 05/25/24 18:42 ABG O2 Saturation > 99.1 05/25/24 18:42 ABG Base Excess -8.3 mmol/L (-2.0-2.0) L 05/25/24 18:42 [place] Test Pos 03/16/25 18:42 A-a O2 Gradient Not Reportable 05/25/24 18:42 Hematocrit 47.5 % (42-52) 05/25/24 18:42 Hgb O2 Saturation 98.6 % (95-100) 05/25/24 18:42 Carboxyhemoglobin 0.6 %THgb (0.4-20.1) 05/25/24 18:42 Methemoglobin 0.2 % (0.4-1.5) L 05/25/24 18:42 Total Hemoglobin 15.5 g/dL (14-18) 05/25/24 18:42 Sodium 138.0 mmol/L (131-143) 05/25/24 18:42 Potassium 4.3 mmol/L (3.5-5.0) 05/25/24 18:42 Glucose 154.0 mg/dL (70-115) H 05/25/24 18:42 Ionized Calcium 1.3 mmol/L (1.1-1.4) 05/25/24 18:42 O2 Delivery Device Nc 05/25/24 18:42 O2 Liters/Min 2.0 % 05/25/24 18:42 FiO2 28.0 % 05/25/24 18:42 Microelectronics Technician ID Monro 05/25/24 18:42 Sodium 133 mmol/L (136-145) L 05/25/24 18:02 Potassium 3.7 mmol/L (3.5-5.1) 05/25/24 18:02 Chloride 97 mmol/L (98-107) L 05/25/24 18:02 Carbon Dioxide 11 mmol/L (22-29) L 05/25/24 18:02 Anion Gap 28.7 (5-19) H 05/25/24 18:02 BUN 11 mg/dL (6-20) 05/25/24 18:02 Creatinine 0.9 mg/dL (0.7-1.2) 05/25/24 18:02 GFR Calculation 104.6 mL/min (90-130) 05/25/24 18:02 Glucose 214 mg/dL (65-115) H 05/25/24 18:02 Calculated Osmolality 282 mOsm/kg (285-295) L 05/25/24 18:02 Lactic Acid 13.2 mmol/L (0.5-2.2) H* 05/25/24 18:02 Calcium 9.1 mg/dL (8.5-10.5) 05/25/24 18:02 Total Bilirubin 0.2 mg/dL (0.15-1.2) 05/25/24 18:02 AST 24 U/L (0-40) 05/25/24 18:02 ALT 17 U/L (0-41) 05/25/24 18:02 Alkaline Phosphatase 74 U/L (40-130) 05/25/24 18:02 Creatine Kinase 139 U/L (39-308) 05/25/24 18:02 Total Protein 7.9 g/dL (6.6-8.7) 05/25/24 18:02 Albumin 5.0 g/dL (3.5-5.2) 05/25/24 18:02 Globulin 2.9 g/dL (1.3-4.6) 05/25/24 18:02 Ethyl Alcohol < 10 mg/dL (0-10) 05/25/24 18:02 No radiology studies performed this visit Discharge Plan Discharge Patient Disposition: Home Clinical Impression: Generalized seizure Condition: Stable Prescriptions: No Action levetiracetam [Keppra] 100 mg/mL solution 500 mg PO BID 60 Days Qty: 600 10RF ondansetron HCl 4 mg/5 mL solution 4 mg PO Q6H PRN (Reason: nausea and vomiting) Qty: 50 0RF ondansetron 4 mg tablet,disintegrating 4 mg PO Q6H PRN (Reason: nausea and vomiting) Qty: 14 0RF Discharge Orders: Discharge ED (Routine); Ordered 05/25/24 Ordered By: Haylee Linares Discharge Diet: Usual diet Discharge Activity: Increase activity as tolerated Patient Instructions: Opioid Safety, Pain Management Activity Restrictions/Additional Instructions: Please be sure that you take your medication as instructed. Twice daily and do not miss any doses. Thank you for choosing [facility] for your healthcare needs today. Please realize this is an emergency room and that we are providing you with a medical screening exam and this may not be complete and all inclusive of all the testing and or work up that you may need to determine your ailment or severity of your illness. You have been screened and evaluated and felt safe for discharge. Health conditions do change or evolve sometimes and as such it is important that you follow up with your Primary Doctor to be re checked, 3-5 days is a general good time frame for follow up. You are always welcome to return to the ED for re assessment if your symptoms are worsening or you have new concerns Print Language: Portuguese Coding Level of Care Code ED Junior Assistant Manager for Gerardo Bray
[2024-05-25 18:55] LABS: ABG PCO2 48.6 mmHg (35-45); ABG PH Result 7.22 (7.35-7.45); Arterial Blood Gas Hematocrit 47.5 % (42-52); Base Excess ABG -8.3 mmol/L (-2.0-2.0); Blood Gas Allen Test Pos; Blood Gas Sample Type Arterial; Carboxyhemoglobin 0.6 %THgb (0.4-20.1); HCO3 ABG 19.7 mmol/L (22-26); HGB O2 Sat 98.6 % (95-100); Ionized Calcium Level - ABG 1.3 mmol/L (1.1-1.4); Methemoglobin 0.2 % (0.4-1.5); Oxygen Saturation ABG > 99.1; Potassium Level - ABG 4.3 mmol/L (3.5-5.0); Total Hemoglobin 15.5 g/dL (14-18)
[2024-05-25 18:56] LABS: Blood Gas Operator Identificat MONRO; Blood Gas Sample Site Radial, left; Oxygen Device NC; PO2 FiO2 Ratio Arterial Blood 628
[2024-05-25 18:57] VITALS: BP 93/68; PULSE 88; RESP 23; O2SAT 98
[2024-05-25 19:47] LABS: Reflex Lactate Order REFLEX LACTIC ORDERD
[2024-05-25 20:18] VITALS: TEMP 36.4
[2024-05-25 20:51] VITALS: BP 99/66; PULSE 83; O2SAT 83
== END 2024-05-25 20:52 | disposition home or self-care (01) ==
PROVIDERS: Emergency Provider Emergency Medicine
DX: R56.9 Unspecified convulsions (principal)
CPT/HCPCS: 36415; 36600; 80051; 80053; 80307; 82330; 82550; 82805; 83605; 85025; 96374; 99284; J1953; J7030

== ENCOUNTER → 2024-10-31 12:20 | Outpatient (BNVA) | payer SELFPAY | PROVIDERS: Referring Provider Emergency Medicine; Visit Provider Nurse Practitioner | DX: R56.9 Unspecified convulsions (principal) | CPT/HCPCS: 36415; 80048; 80177; 84443; 85025 ==